=== PATIENT | female | born 2000 | race Caucasian/White ===

== ENCOUNTER 2022-05-19 16:04 | Inpatient (IN) ==
[2022-05-19 17:20] LABS: Basophils # (auto) 0.03 K/uL (0-0.2); Basophils % (auto) 0.5 %; Eosinophils # (auto) 0.13 K/uL (0-0.50); Eosinophils % (auto) 2.1 %; Hematocrit (blood only) 29.1 % (34.1-44.9); Hemoglobin 9.6 g/dl (12.0-16.0); Immature Granulocytes # (auto) 0.01 K/uL (0.00-0.02); Immature Granulocytes % (auto) 0.2 %; Lymphocytes # (auto) 2.17 K/uL (1.2-3.4); Lymphocytes % (auto) 34.9 %; Mean Corpuscular Hemoglobin 30.9 pg (25.0-34.0); Mean Corpuscular Volume 93.6 fL (80.0-100.0); Monocytes # (auto) 0.36 K/uL (0.24-0.82); Monocytes % (auto) 5.8 %; Neutrophils # (auto) 3.52 K/uL (1.4-6.5); Neutrophils % (auto) 56.5 %; Platelet Count 303 K/uL (130-400); RDW Standard Deviation 44.2 fL (36.4-46.3); Red Blood Count 3.11 M/uL (3.93-5.22); White Blood Count 6.22 K/ul (4.8-10.8)
[2022-05-19 17:35] LABS: Pregnancy Test, Serum Negative (Negative)
[2022-05-19 17:55] LABS: Albumin Globulin Ratio 1.2 (0.9-2); Albumin Level 4.1 gm/dl (3.4-5.0); BUN Creatinine Ratio 11.4 (10-20); Bilirubin,Total 0.3 mg/dl (0.2-1.0); Calcium 8.5 mg/dl (8.5-10.1); Creatinine Clr Calc Pharmacy 22.4 ml/min; Est GFR (African American) 16.5 ml/min; Est GFR (Non-African American) 14.2 ml/min; Globulin 3.5 gm/dl (2.5-4.0); Potassium 3.4 mmol/L (3.5-5.1); Total Protein 7.6 gm/dl (6.0-8.3)
[2022-05-19] MEDS ORDERED: SODIUM CHLORIDE 0.9% 1000ML 500 ML IV ONE (18:27)
[2022-05-19] MEDS ORDERED: SODIUM CHLORIDE 0.9% 1000ML 1,000 ML IV STA (18:27)
--- NOTE | 2022-05-19 18:30 | Emergency Department Note ---
Impression & Plan Acute renal failure ED Provider Note INFORMANT: Patient ED PROVIDER(S): Leonel Zapata MD CHIEF COMPLAINT: Abnormal labs PLAN: Disposition: Admitted Condition: Good Outpatient prescription management: none Referral: None MEDICAL DECISION MAKING: patient presented due to abnormal labs and concern about possible Renal failure. He patient had a work-up initiated. Her CBC showed a minimal anemia. Chemistry panel did reveal the presence of renal failure with a creatinine of 4.8. Potassium was unremarkable. Urinalysis did not reveal any gross findings. The patient had a CT scan of the abdomen pelvis performed. No obstructive pathology was noted. Ultrasound imaging ordered. Patient was hydrated. Consultation was made with Dr. Adam Tinoco of the [facility] service. Patient was evaluated in the ER for further management. Triage Nursing notes reviewed and agree them. Vital Signs: reviewed and remarkable for no significant abnormalities Differential diagnosis: Laboratory abnormality, acute renal failure, infection, dehydration, metabolic abnormality, hypo/hyperglycemia, electrolyte disturbance, anemia, hypoxia, cardiac sources, intracerebral event, toxicologic, neurologic, as well as other pathologies. Diagnostics interpreted by me: ECG: none Cardiac Monitoring: none Imaging studies: Scan as noted below HPI: The patient is a 21 year old female who presents to the Emergency Room with complaints of of abnormal labs. This started with a blood draw done 3 days ago and is described as a creatinine of 4.5. The patient also notes the following associated symptoms, some URI symptoms last week but overall patient feels well now. Patient did have COVID over the summer. She has been worked up for anemia and the outpatient labs revealed the abnormal creatinine. The patient has been prescribed no medication for relieving factors. Current pain is rated as 0/10. No prior history of the same. Pt denies LOC, headache, fevers, chills, diaphoresis, visual changes, neck pain, chest pain, breathing difficulties, nausea, vomiting, abdominal pain, back pain, melena, hematochezia, urinary symptoms, numbness, weakness, lymphadenopathy, rash, or other complaints. ROS: See above HPI for pertinent positives & negatives. A total of 10 systems reviewed and were otherwise negative. PAST MEDICAL HISTORY:See Below , anemia, ADHD PAST SURGICAL HISTORY:See Below, FAMILY HISTORY:See Below SOCIAL HISTORY:See Below, [employer] student HOME MEDICATIONS:See Below ALLERGIES:See Below VITALS:See Below PHYSICAL EXAMINATION: GENERAL: Awake, alert, well-appearing, in no distress HENT: Normocephalic, atraumatic. Oropharynx unremarkable. EYES: Normal conjunctiva. Sclera non-icteric. NECK: Inspection normal. Non-tender. Supple. No nuchal rigidity. FROM. No masses. RESPIRATORY: Clear to auscultation. No wheezes. No rales. Normal respiratory effort. CARDIAC: Normal rate. Normal rhythm. No murmurs. No rubs. Extremities warm and well perfused. Pulses equal. No JVD. GI: Soft, non-distended. No tenderness to palpation. No rebound or guarding. No masses. RECTAL: Deferred. MUSCULOSKELETAL: Atraumatic. Chest examination reveals no tenderness. The back is symmetrical on inspection without obvious abnormality. There is no CVA tenderness to palpation. No joint edema. LOWER EXTREMITIES: Calves are equal size bilaterally and non-tender. No edema. No discoloration. NEURO: Normal sensorium. No sensory or motor deficits noted. SKIN: No rash or jaundice noted. Leonel Zapata MD Past Med/Surg History Medical History (Updated 05/19/22 @ 21:12 by Sonia Pitts PA-C) ADD (attention deficit disorder) Anemia Depression Surgical History (Updated 05/19/22 @ 20:14 by Sonia Pitts PA-C) History of myringotomy Family History (Updated 05/19/22 @ 20:14 by Sonia Pitts PA-C) Denies family history of Kidney disease Social History Smoking Status: Never smoker Feels Safe at Home: Yes Allergies Allergies Allergy/AdvReac Type Severity Reaction Status Date / Time No Known Allergies Allergy Unverified 05/19/22 20:54 Home Meds Home Medications Medication Instructions Recorded Confirmed Control Pill 1 tab PO DAILY 05/19/22 05/19/22 dextroamphetamine-amphetamine ER 25 mg PO DAILY 05/19/22 05/19/22 25 mg 24hr capsule,extend release (Adderall XR) escitalopram oxalate 20 mg tablet 20 mg PO DAILY 05/19/22 05/19/22 (Lexapro) ferrous sulfate 325 mg (65 mg 0 mg PO DAILY 05/19/22 05/19/22 iron) tablet (iron) vitamin B complex 1 tab PO DAILY 05/19/22 05/19/22 Results & Data (ED) Vital Signs Vital Signs - 24 hr 05/19/22 16:07 05/19/22 18:21 05/19/22 20:14 Temperature 36.8 C Temperature Source Temporal Artery Scan Pulse Rate 109 H 95 H Pulse Rate [Right Finger] 84 Pulse Rhythm Regular Respiratory Rate 20 18 24 Respiratory Effort / Characteristics Non-Labored Respiratory Depth Normal Blood Pressure 136/88 Blood Pressure [Left Arm] 148/96 H Blood Pressure Mean 104 Blood Pressure Mean [Left Arm] 113 Pulse Oximetry 98 98 100 Oxygen Delivery Method Room Air Room Air Room Air Sepsis Recent Fever Within 48 Hours No Sepsis New/Unexplained Change in Mental Status N/A Sepsis Action Taken by Nursing No Action Required 05/19/22 20:14 05/19/22 22:00 Temperature Temperature Source Pulse Rate Pulse Rate [Right Finger] 95 H 83 Pulse Rhythm Respiratory Rate 24 17 Respiratory Effort / Characteristics Respiratory Depth Blood Pressure Blood Pressure [Left Arm] 160/103 H Blood Pressure Mean Blood Pressure Mean [Left Arm] 122 Pulse Oximetry 100 100 Oxygen Delivery Method Room Air Room Air Sepsis Recent Fever Within 48 Hours Sepsis New/Unexplained Change in Mental Status Sepsis Action Taken by Nursing Laboratory Data Result diagrams: 05/19/22 17:11 05/19/22 17:11 Lab Results 05/19/22 05/19/22 05/19/22 Range/Units 17:11 17:11 17:11 WBC 6.22 (4.8-10.8) K/ul RBC 3.11 L (3.93-5.22) M/uL Hgb 9.6 L (12.0-16.0) g/dl Hct 29.1 L (34.1-44.9) % MCV 93.6 (80.0-100.0) fL MCH 30.9 (25.0-34.0) pg MCHC 33.0 (32.0-36.0) g/dL RDW Std Deviation 44.2 (36.4-46.3) fL RDW Coeff of Maria Teresa 13.0 (11.5-14.5) % Plt Count 303 (130-400) K/uL MPV 9.0 L (9.4-12.3) fL Immature Gran % (Auto) 0.2 % Neut % (Auto) 56.5 % Lymph % (Auto) 34.9 % Grand % (Auto) 5.8 % Eos % (Auto) 2.1 % Baso % (Auto) 0.5 % Neut # (Auto) 3.52 (1.4-6.5) K/uL Lymph # (Auto) 2.17 (1.2-3.4) K/uL Grand # (Auto) 0.36 (0.24-0.82) K/uL Eos # (Auto) 0.13 (0-0.50) K/uL Baso # (Auto) 0.03 (0-0.2) K/uL Immature Gran # (Auto) 0.01 (0.00-0.02) K/uL Sodium 141 (136-145) mmol/L Potassium 3.4 L (3.5-5.1) mmol/L Chloride 107 (98-107) mmol/L Carbon Dioxide 22 (21-32) mmol/L Anion Gap 12 H (3-11) BUN 48 H (6-23) mg/dl Creatinine 4.20 H (0.6-1.2) mg/dl Est Cr Clr Drug Dosing 22.4 ml/min Est GFR ( Amer) 16.5 ml/min Est GFR (Non-Af Amer) 14.2 ml/min BUN/Creatinine Ratio 11.4 (10-20) Glucose 96 (70-99(Fasting)) mg/dl Calcium 8.5 (8.5-10.1) mg/dl Total Bilirubin 0.3 (0.2-1.0) mg/dl AST 15 (13-39) U/L ALT 10 (7-52) U/L Alkaline Phosphatase 119 H (34-104) U/L Total Protein 7.6 (6.0-8.3) gm/dl Albumin 4.1 (3.4-5.0) gm/dl Globulin 3.5 (2.5-4.0) gm/dl Albumin/Globulin Ratio 1.2 (0.9-2) Lipase 29 (11-82) U/L 25-OH Vitamin D Total (30-100) ng/ml HCG, Qual Negative (Negative) PTH Intact (12.0-88.0) pg/ml Urine Color Urine Appearance (Clear) Urine pH (4.5-7.5) Ur Specific Chancellor (1.000-1.030) Urine Protein (Negative) Urine Glucose (UA) (Negative) Urine Ketones (Negative) Urine Blood (Negative) Urine Nitrite (Negative) Urine Bilirubin (Negative) Urine Urobilinogen (Negative) Ur Leukocyte Esterase (Negative) Urine WBC (Auto) (0-5) /hpf Urine RBC (Auto) (0-4) /hpf U Hyaline Cast (Auto) (0-5) /lpf U Epithel Cells (Auto) (0-5) /lpf Urine Bacteria (Auto) (Negative) SARS-CoV-2, RNA, NAAT (NEGATIVE) 05/19/22 05/19/22 05/19/22 Range/Units 17:11 18:19 19:50 WBC (4.8-10.8) K/ul RBC (3.93-5.22) M/uL Hgb (12.0-16.0) g/dl Hct (34.1-44.9) % MCV (80.0-100.0) fL MCH (25.0-34.0) pg MCHC (32.0-36.0) g/dL RDW Std Deviation (36.4-46.3) fL RDW Coeff of Maria Teresa (11.5-14.5) % Plt Count (130-400) K/uL MPV (9.4-12.3) fL Immature Gran % (Auto) % Neut % (Auto) % Lymph % (Auto) % Grand % (Auto) % Eos % (Auto) % Baso % (Auto) % Neut # (Auto) (1.4-6.5) K/uL Lymph # (Auto) (1.2-3.4) K/uL Grand # (Auto) (0.24-0.82) K/uL Eos # (Auto) (0-0.50) K/uL Baso # (Auto) (0-0.2) K/uL Immature Gran # (Auto) (0.00-0.02) K/uL Sodium (136-145) mmol/L Potassium (3.5-5.1) mmol/L Chloride (98-107) mmol/L Carbon Dioxide (21-32) mmol/L Anion Gap (3-11) BUN (6-23) mg/dl Creatinine (0.6-1.2) mg/dl Est Cr Clr Drug Dosing ml/min Est GFR ( Amer) ml/min Est GFR (Non-Af Amer) ml/min BUN/Creatinine Ratio (10-20) Glucose (70-99(Fasting)) mg/dl Calcium (8.5-10.1) mg/dl Total Bilirubin (0.2-1.0) mg/dl AST (13-39) U/L ALT (7-52) U/L Alkaline Phosphatase (34-104) U/L Total Protein (6.0-8.3) gm/dl Albumin (3.4-5.0) gm/dl Globulin (2.5-4.0) gm/dl Albumin/Globulin Ratio (0.9-2) Lipase (11-82) U/L 25-OH Vitamin D Total 35.6 (30-100) ng/ml HCG, Qual (Negative) PTH Intact (12.0-88.0) pg/ml Urine Color Yellow Urine Appearance Clear (Clear) Urine pH 6.5 (4.5-7.5) Ur Specific Chancellor 1.006 (1.000-1.030) Urine Protein Trace H (Negative) Urine Glucose (UA) Negative (Negative) Urine Ketones Negative (Negative) Urine Blood Negative (Negative) Urine Nitrite Negative (Negative) Urine Bilirubin Negative (Negative) Urine Urobilinogen Negative (Negative) Ur Leukocyte Esterase Negative (Negative) Urine WBC (Auto) 1-5 (0-5) /hpf Urine RBC (Auto) 0-4 (0-4) /hpf U Hyaline Cast (Auto) 0 (0-5) /lpf U Epithel Cells (Auto) 5-10 H (0-5) /lpf Urine Bacteria (Auto) Negative (Negative) SARS-CoV-2, RNA, NAAT NEGATIVE (NEGATIVE) 05/19/22 Range/Units 20:25 WBC (4.8-10.8) K/ul RBC (3.93-5.22) M/uL Hgb (12.0-16.0) g/dl Hct (34.1-44.9) % MCV (80.0-100.0) fL MCH (25.0-34.0) pg MCHC (32.0-36.0) g/dL RDW Std Deviation (36.4-46.3) fL RDW Coeff of Maria Teresa (11.5-14.5) % Plt Count (130-400) K/uL MPV (9.4-12.3) fL Immature Gran % (Auto) % Neut % (Auto) % Lymph % (Auto) % Grand % (Auto) % Eos % (Auto) % Baso % (Auto) % Neut # (Auto) (1.4-6.5) K/uL Lymph # (Auto) (1.2-3.4) K/uL Grand # (Auto) (0.24-0.82) K/uL Eos # (Auto) (0-0.50) K/uL Baso # (Auto) (0-0.2) K/uL Immature Gran # (Auto) (0.00-0.02) K/uL Sodium (136-145) mmol/L Potassium (3.5-5.1) mmol/L Chloride (98-107) mmol/L Carbon Dioxide (21-32) mmol/L Anion Gap (3-11) BUN (6-23) mg/dl Creatinine (0.6-1.2) mg/dl Est Cr Clr Drug Dosing ml/min Est GFR ( Amer) ml/min Est GFR (Non-Af Amer) ml/min BUN/Creatinine Ratio (10-20) Glucose (70-99(Fasting)) mg/dl Calcium (8.5-10.1) mg/dl Total Bilirubin (0.2-1.0) mg/dl AST (13-39) U/L ALT (7-52) U/L Alkaline Phosphatase (34-104) U/L Total Protein (6.0-8.3) gm/dl Albumin (3.4-5.0) gm/dl Globulin (2.5-4.0) gm/dl Albumin/Globulin Ratio (0.9-2) Lipase (11-82) U/L 25-OH Vitamin D Total (30-100) ng/ml HCG, Qual (Negative) PTH Intact 753.6 H (12.0-88.0) pg/ml Urine Color Urine Appearance (Clear) Urine pH (4.5-7.5) Ur Specific Chancellor (1.000-1.030) Urine Protein (Negative) Urine Glucose (UA) (Negative) Urine Ketones (Negative) Urine Blood (Negative) Urine Nitrite (Negative) Urine Bilirubin (Negative) Urine Urobilinogen (Negative) Ur Leukocyte Esterase (Negative) Urine WBC (Auto) (0-5) /hpf Urine RBC (Auto) (0-4) /hpf U Hyaline Cast (Auto) (0-5) /lpf U Epithel Cells (Auto) (0-5) /lpf Urine Bacteria (Auto) (Negative) SARS-CoV-2, RNA, NAAT (NEGATIVE) Administered Medications Discontinued Medications Sodium Chloride (Nss 1000ml) 500 mls @ 999 mls/hr IV .Q31M ONE Stop: 05/19/22 18:57 Last Infusion: 05/19/22 19:44 Dose: 0 mls/hr Documented By: Admin: 05/19/22 18:47 Dose: 999 mls/hr Documented By: GABY Sodium Chloride (Nss 1000ml) 1,000 mls @ 125 mls/hr IV .Q8H STA Stop: 05/20/22 02:26 Last Infusion: 05/19/22 21:16 Dose: 0 mls/hr Documented By: Admin: 05/19/22 19:47 Dose: 125 mls/hr Documented By: FIDELIA Lactated Ringer's (Lr) 1,000 mls @ 999 mls/hr IV .Q1H1M ONE Stop: 05/19/22 22:07 Last Admin: 05/19/22 21:35 Dose: 999 mls/hr Documented By: FIDELIA Potassium Chloride (Potassium Chloride Crtab 20 Meq Tabcr) 20 meq PO NOW STA Stop: 05/19/22 21:18 Last Admin: 05/19/22 21:43 Dose: 20 meq Documented By: FIDELIA Imaging Data Radiologist's Impression: Abdomen/Pelvis CT 05/19/22 18:[address] WITHOUT CONTRAST CT DOSE: 475.91 mGy.cm HISTORY: Acute generalized abdominal pain with acute renal failure ARF TECHNIQUE: Multiaxial CT images of the abdomen and pelvis were performed without contrast. A dose lowering technique was utilized adhering to the principles of ALARA. COMPARISON STUDY: None. FINDINGS: Clear lung bases. No pneumatosis or pneumoperitoneum. Decreased attenuation of the cardiac blood pool suggestive of anemia. The unenhanced spleen, pancreas, contracted gallbladder, adrenal glands and liver appear unremarkable. 3.2 cm water attenuating focus of the superior pole right kidney suggestive of a cyst. Probable additional smaller cysts of the interpolar right kidney. 1.3 cm cyst within the superior pole left kidney. No renal or ureteral calculi or hydronephrosis. Mildly atrophic kidneys measuring 8.8 cm on the left and 9.2 cm on the right. Trace nonspecific bilateral perinephric stranding. Unremarkable urinary bladder, uterus and adnexa. Aorta and IVC are unremarkable. There is no lymphadenopathy identified. No bowel obstruction or bowel wall thickening. Mild colonic diverticulosis. Normal appendix. Unremarkable soft tissues. There is diffuse sclerosis of the osseous structures. Minimal lumbar levoscoliosis. IMPRESSION: 1. Mild atrophy of the kidneys without renal or ureteral calculi or hydronephrosis. 2. Diffuse sclerosis of the osseous structures suggestive of renal osteodystrophy. 3. No bowel obstruction or bowel wall thickening. Normal appendix. ACT 112: Negative or not required by law. The above report was generated using voice recognition software. It may contain grammatical, syntax or spelling errors. Electronically signed by: Nickolas Nolan M.D. 05/19/2022 7:05 PM Discharge Plan Visit Data Chief Complaint: Abnormal Labs/Diagnostic Testing Stated Complaint: ABNORMAL LAB RESULTS, POTENTIAL KIDNEY FAILURE ED Provider: Leonel Zapata Discharge Problem: Acute renal failure Forms Stand Alone Forms: My [facility] Prescriptions Prescriptions: No Action ferrous sulfate [iron] 325 mg (65 mg iron) Tablet 0 mg PO DAILY vitamin B complex Tablet 1 tab PO DAILY dextroamphetamine-amphetamine [Adderall XR] 25 mg Capsule,Extended Release 24hr 25 mg PO DAILY escitalopram oxalate [Lexapro] 20 mg Tablet 20 mg PO DAILY Rx Instructions: per mother Control Pill 1 tab PO DAILY Referrals Referrals: FRANCIS KAUFMAN [Other]
[2022-05-19 18:37] LABS: Appearance Urine Clear (Clear); Bacteria Urine Automated Negative (Negative); Bilirubin Urine Negative (Negative); Blood Urine Negative (Negative); Cast Urine Automated 0 /lpf (0-5); Color Urine Yellow; Glucose Urine UA Negative (Negative); Ketones Urine Negative (Negative); Leukocyte Esterase Urine Negative (Negative); Nitrite Urine Negative (Negative); Protein Urine Trace (Negative); RBC Urine Automated 0-4 /hpf (0-4); Specific Gravity Urine 1.006 (1.000-1.030); Urobilinogen Urine Negative (Negative); pH Urine 6.5 (4.5-7.5)
--- NOTE | 2022-05-19 19:07 | CT Scan Report ---
ABDOMEN AND PELVIS CT WITHOUT CONTRAST CT DOSE: 475.91 mGy.cm HISTORY: Acute generalized abdominal pain with acute renal failure ARF TECHNIQUE: Multiaxial CT images of the abdomen and pelvis were performed without contrast. A dose lo wering technique was utilized adhering to the principles of ALARA. COMPARISON STUDY: None. FINDINGS: Clear lung bases. No pneumatosis or pneumoperitoneum. Decreased attenuation of the cardiac blood pool suggestive of anemia. The unenhanced spleen, pancreas, contracted gallbladder, adrenal gla nds and liver appear unremarkable. 3.2 cm water attenuating focus of the superior pole right kidney suggestive of a cyst. Probable addit ional smaller cysts of the interpolar right kidney. 1.3 cm cyst within the superior pole left kidney. No renal or ureteral calculi or hydronephrosis. Mildly atrophic kidneys measuring 8.8 cm on the left and 9.2 cm on the right. Trace nonspecific bilateral perinephric stranding. Unremarkable urinary jaylene dder, uterus and adnexa. Aorta and IVC are unremarkable. There is no lymphadenopathy identified. No bowel obstruction or bowel wall thickening. Mild colonic diverticulosis. Normal appendix. Unremark able soft tissues. There is diffuse sclerosis of the osseous structures. Minimal lumbar levoscoliosis . IMPRESSION: 1. Mild atrophy of the kidneys without renal or ureteral calculi or hydronephrosis. 2. Diffuse sclerosis of the osseous structures suggestive of renal osteodystrophy. 3. No bowel obstruction or bowel wall thickening. Normal appendix. ACT 112: Negative or not required by law. The above report was generated using voice recognition software. It may contain grammatical, syntax o r spelling errors. Electronically signed by: Nickolas Nolan M.D. 05/19/2022 7:05 PM
--- NOTE | 2022-05-19 19:22 | History & Physical Report ---
Date of Service May 19, 2022 Assessment & Plan (1) Acute renal failure: Plan: - Cr 4.20, GFR < 15. ALK PHOS 119. - Urine wnl. - Renal US pending. - CT A/P: Mild atrophy of the kidneys without renal or ureteral calculi or hydronephrosis. Diffuse sclerosis of the osseous structures suggestive of renal osteodystrophy. - Unknown etiology. No personal or family history of kidney disease, no comorbid conditions that may be contributing, no new medications. - 500 cc bolus given in ED, will order additional 1L LR bolus with mIVF: LR 125 cc/hr. - PTH, vitamin D added on to labs. - Repeat BMP this evening and in AM. - Nephrology consulted, appreciate their assistance with this patient and further recommendations. (2) Elevated heart rate with elevated blood pressure without diagnosis of hypertension: Plan: - HTnsive SBP 140-160s, suspect an element of anxiety is contributing. - We will continue IVF and give patient time to rest, if BP remians elevated overnight while asleep, will consider addding on antihypertensive. (3) Anemia: Plan: - Hgb 9.3, likely element of kidney disease. - Continue iron and b-complex. - Iron studies with AM labs. (4) Depression: Plan: - Continue lexapro. (5) ADD (attention deficit disorder): Plan: - Continue Adderall XR as requested by patient. Plan - Admit to med/tele. - SCDsa for VTE ppx. - Full Code. History of Present Illness Chief Complaint: Elevated creatinine on outpatient labs today Primary Care Provider: FRANCIS SHAE Gomez is a 21-year-old female with past medical history significant for ADD and depression who presents today as referral of her PCP due to abnormal labs. Patient had COVID-19 infection this summer and had prolonged fatigue, therefore basic labs were drawn and she was being worked up for anemia. Started on iron supplement and B complex vitamin. Care has been taken over by career services representative, who is a close family friend. She had labs drawn 3 days ago which came back with a creatinine of 4.5. Given the results, she was referred to the ED for further evaluation. On CT, it is noted that there is mild atrophy of the kidneys without any renal/ureteral calculi or hydronephrosis, diffuse sclerosis of the osseous structures suggestive of renal osteodystrophy. Is a 3.2 cm cystic structure on superior pole of the right kidney and a 1.3 cm cyst within the superior pole of the left kidney. Patient has had a URI for the past week, but has been getting better. She is producing urine. Her medications include Adderall and Lexapro, neither of which are new. She is not had any recent fractures or MSK injuries. There is no history of kidney disease in the family. Patient's past medical history does not seem to be contributory. She had ear tubes in infancy, and is on the above prescribed medications. No personal history of kidney disease or bone disease. Allergies Allergy/AdvReac Type Severity Reaction Status Date / Time No Known Allergies Allergy Unverified 05/19/22 20:54 Home Medications Medication Instructions Recorded Confirmed Type Control Pill 1 tab PO DAILY 05/19/22 05/19/22 History dextroamphetamine-amphetamine ER 25 mg PO DAILY 05/19/22 05/19/22 History 25 mg 24hr capsule,extend release (Adderall XR) escitalopram oxalate 20 mg tablet 20 mg PO DAILY 05/19/22 05/19/22 History (Lexapro) ferrous sulfate 325 mg (65 mg 0 mg PO DAILY 05/19/22 05/19/22 History iron) tablet (iron) vitamin B complex 1 tab PO DAILY 05/19/22 05/19/22 History Past Med/Surg History Medical History ADD (attention deficit disorder) Anemia Depression Surgical History History of myringotomy Family History Denies family history of Kidney disease Social History Smoking Status: Never smoker Hx Alcohol Use: Yes Alcohol type: beer Hx Substance Use: No Preferred Language: Pashto Route Service Representative Required: No Beliefs That Will Affect Care: None Current Living Situation: Other Current Living Situation Comment: friend Feels Safe at Home: Yes Assistive Devices: Glasses Review of Systems Review of Systems: Constitutional: No fever/chills, weakness, fatigue, myalgias, anorexia, night sweats Eyes: No diplopia, no worsening or blurred vision ENT: normal hearing, no trouble swallowing Respiratory: No cough, sputum, dyspnea at rest or on exertion Cardiovascular: No chest pain, tightness or palpitations Abdomen: No pain, nausea, vomiting, diarrhea or constipation : Denies dysuria, hematuria, increased urgency/frequency, urinary retention Musculoskeletal: No joint pain, calf pain, swelling Neurologic: No weakness, numbness/tingling, or balance problems Psychiatric: No anxiety or depression Skin: No rash or itch Physical Exam Physical Exam: General: awake, alert, no apparent distress Head: Normocephalic, atraumatic ENT: PERRL, EOMI, no pharyngeal exudate, mucous membranes moist Chest: Clear to auscultation, on room air, no adventitious breath sounds Cardiac: Regular rate and rhythm, no murmur, no JVD, normal peripheral pulses, good capillary refill Abdominal: NABS x 4 quadrants, soft, nontender to palpation, no rebound, guarding or tenderness Extremities: Normal inspection, no peripheral edema or erythema, calfs nontender to palpation Psych: Normal mood and affect Neuro: AAO x 3, strength intact bilaterally and rated 5/5, no motor deficits, speech is clear, no peripheral sensory deficits Skin: no rash or erythema Results & Data Results & Data ([facility]) Vital Signs (Past 12 Hours) Vital Signs Temp Pulse Pulse Resp BP BP Pulse Ox 05/19/22 18:21 84 18 148/96 H 98 05/19/22 16:07 36.8 C 109 H 20 136/88 98 O2 Del Method 05/19/22 18:21 Room Air 05/19/22 16:07 Room Air Laboratory Results Abnormal lab results 05/19/22 05/19/22 05/19/22 Range/Units 17:11 17:11 18:19 RBC 3.11 L (3.93-5.22) M/uL Hgb 9.6 L (12.0-16.0) g/dl Hct 29.1 L (34.1-44.9) % MPV 9.0 L (9.4-12.3) fL Potassium 3.4 L (3.5-5.1) mmol/L Anion Gap 12 H (3-11) BUN 48 H (6-23) mg/dl Creatinine 4.20 H (0.6-1.2) mg/dl Alkaline Phosphatase 119 H (34-104) U/L Urine Protein Trace H (Negative) U Epithel Cells (Auto) 5-10 H (0-5) /lpf Diagnostic Findings Abdomen/Pelvis CT 05/19/22 18:[address] WITHOUT CONTRAST CT DOSE: 475.91 mGy.cm HISTORY: Acute generalized abdominal pain with acute renal failure ARF TECHNIQUE: Multiaxial CT images of the abdomen and pelvis were performed without contrast. A dose lowering technique was utilized adhering to the principles of ALARA. COMPARISON STUDY: None. FINDINGS: Clear lung bases. No pneumatosis or pneumoperitoneum. Decreased attenuation of the cardiac blood pool suggestive of anemia. The unenhanced spleen, pancreas, contracted gallbladder, adrenal glands and liver appear unremarkable. 3.2 cm water attenuating focus of the superior pole right kidney suggestive of a cyst. Probable additional smaller cysts of the interpolar right kidney. 1.3 cm cyst within the superior pole left kidney. No renal or ureteral calculi or hydronephrosis. Mildly atrophic kidneys measuring 8.8 cm on the left and 9.2 cm on the right. Trace nonspecific bilateral perinephric stranding. Unremarkable urinary bladder, uterus and adnexa. Aorta and IVC are unremarkable. There is no lymphadenopathy identified. No bowel obstruction or bowel wall thickening. Mild colonic diverticulosis. Normal appendix. Unremarkable soft tissues. There is diffuse sclerosis of the osseous structures. Minimal lumbar levoscoliosis. IMPRESSION: 1. Mild atrophy of the kidneys without renal or ureteral calculi or hydronephrosis. 2. Diffuse sclerosis of the osseous structures suggestive of renal osteodystrophy. 3. No bowel obstruction or bowel wall thickening. Normal appendix. ACT 112: Negative or not required by law. The above report was generated using voice recognition software. It may contain grammatical, syntax or spelling errors. Electronically signed by: Nickolas Nolan M.D. 05/19/2022 7:05 PM Code Status & VTE Plan Code Status Full Code. Supervising Physician Co-Signing Physician Notes Attending addendum: I have physically seen this patient, have supervised the medical residents activities, and agree with the H&P unless as otherwise noted. Assessment and Plan: Acute renal failure- Creatinine 4.20, GFR less than 15 Renal ultrasound ordered and pending CT suggestive of atrophy and renal osteodystrophy Received NSS 500 cc from the ED Order additional 1 L LR bolus now, followed by LR at 125 mils per hour Repeat BMP and magnesium levels this evening in the a.m. Consult nephrology Anemia- Hemoglobin 9.3 Serial H&H's Check iron studies, B12 folic acid Continue iron and B complex supplementation Hemoccult stools Likely an element of anemia of chronic disease as well Depression/ADD- Continue Lexapro and Adderall XR Remaining orders and notations as noted PG Care Time/CCT Total # of Minutes Spent Total Time Spent with Patient: Total time spent is greater than 50% in coordination of care (as documented) at patient's floor/unit and/or counseling patient: Coding Level of Care Code 34977 Initial Inpt Care Lvl 3 Diagnoses Acute renal failure N17.9 Elevated heart rate with elevated blood pressure without diagnosis of hypertension R00.9; R03.0 Anemia D64.9 Depression F32.A ADD (attention deficit disorder) F98.8
[2022-05-19] MEDS ORDERED: LACTATED RINGER'S 1,000 ML IV ONE (21:07)
[2022-05-19] MEDS ORDERED: POTASSIUM CHLORIDE CRTAB 20 MEQ TABCR PO STA (21:17)
[2022-05-19] MEDS ORDERED: POLYETHYLENE (MIRALAX) 17 GM PACK PO PRN (23:14)
[2022-05-19] MEDS ORDERED: ACETAMINOPHEN 325 MG TAB PO PRN (23:14)
[2022-05-19] MEDS ORDERED: ONDANSETRON INJ 2 MG/ML 2 ML VIAL IV PRN (23:14)
[2022-05-19] MEDS: LACTATED RINGER'S 1,000 ML IV SCH (23:39)
[2022-05-20 00:06] LABS: BUN Creatinine Ratio 10.8 (10-20); Calcium 8.6 mg/dl (8.5-10.1); Creatinine Clr Calc Pharmacy 23.6 ml/min; Est GFR (African American) 17.6 ml/min; Est GFR (Non-African American) 15.1 ml/min; Potassium 3.2 mmol/L (3.5-5.1)
[2022-05-20] MEDS ORDERED: POTASSIUM CHLORIDE CRTAB 20 MEQ TABCR PO STA (00:50)
[2022-05-20 06:52] LABS: Basophils # (auto) 0.02 K/uL (0-0.2); Basophils % (auto) 0.4 %; Eosinophils # (auto) 0.12 K/uL (0-0.50); Eosinophils % (auto) 2.2 %; Hematocrit (blood only) 25.4 % (34.1-44.9); Hemoglobin 8.4 g/dl (12.0-16.0); Immature Granulocytes # (auto) 0.01 K/uL (0.00-0.02); Immature Granulocytes % (auto) 0.2 %; Lymphocytes % (auto) 43.9 %; Mean Corpuscular Hemoglobin 30.7 pg (25.0-34.0); Mean Corpuscular Hgb Conc 33.1 g/dL (32.0-36.0); Mean Corpuscular Volume 92.7 fL (80.0-100.0); Mean Platelet Volume 8.8 fL (9.4-12.3); Monocytes # (auto) 0.35 K/uL (0.24-0.82); Monocytes % (auto) 6.4 %; Neutrophils # (auto) 2.57 K/uL (1.4-6.5); Neutrophils % (auto) 46.9 %; Platelet Count 252 K/uL (130-400); RDW Coefficient of Variation 13.2 % (11.5-14.5); RDW Standard Deviation 44.6 fL (36.4-46.3); Red Blood Count 2.74 M/uL (3.93-5.22); White Blood Count 5.47 K/ul (4.8-10.8)
--- NOTE | 2022-05-20 07:25 | Ultrasound Report ---
ULTRASOUND KIDNEYS AND BLADDER CLINICAL HISTORY: Acute renal insufficiency. COMPARISON STUDY: Abdominal CT performed the same day 05/19/2022. TECHNIQUE: Real-time, grayscale, and color flow sonography of the kidneys and bladder is performed. I mages are reviewed in the transverse and longitudinal planes. FINDINGS: Kidneys: The kidneys demonstrate mild cortical atrophy and increased cortical echotexture. The right kidney measures 10.2 cm in length and the left kidney measures 1.3 cm in length. There is no hydrone phrosis. No shadowing renal calculi are identified. Bilateral renal cysts measure up to 3.1 cm. There is no sonographic evidence of contour deforming renal mass lesion. No perinephric fluid is identifie d. Bladder: The bladder is normal in appearance. Bilateral ureteral jets were seen. IMPRESSION: 1. The kidneys demonstrate mild cortical atrophy and increased cortical echotexture indicating medica l renal disease. 2. The bladder is normal as visualized. ACT 112: Negative or not required by law. Electronically signed by: Monroe Willis M.D. 05/20/2022 7:24 AM
[2022-05-20 07:27] LABS: Iron 72 mcg/dl (35-150); Total Iron Binding Cap Calc 294 mcg/dl (250-450); Transferrin (FE) Percent Satur 24 % (15-50); Unsaturated Iron Binding Cap 222 mcg/dl (155-355)
[2022-05-20 07:29] LABS: BUN Creatinine Ratio 10.2 (10-20); Calcium 8.5 mg/dl (8.5-10.1); Creatinine Clr Calc Pharmacy 24.7 ml/min; Est GFR (African American) 18.4 ml/min; Est GFR (Non-African American) 15.9 ml/min; Potassium 3.7 mmol/L (3.5-5.1)
[2022-05-20] MEDS: LACTATED RINGER'S 1,000 ML IV SCH ×2 (07:40→16:17)
[2022-05-20 07:41] LABS: Ferritin 23.3 ng/ml (8-388)
[2022-05-20] MEDS: ORAL CONTRACEPTIVE: ORDER AWAITING ACTION SCH ×2 (07:41→16:18)
[2022-05-20 07:47] LABS: Folate (Folic Acid) > 22.30 ng/ml (>5.38)
[2022-05-20 07:48] LABS: Vitamin B12 203 pg/ml (180-914)
--- NOTE | 2022-05-20 08:50 | Nephrology Consultation ---
Date of Consultation May 20, 2022 Assessment & Plan (1) Elevated serum creatinine: I have met with Abril and her mother Candy this morning. Patient appears to have advanced CKD. Small renal size w/ cortical thinning and increased echogenicity on imaging, acellular urine sediment, anemia, HTN and marked elevation in PTH all point toward a chronic process. She has had minimal improvement following IV hydration. I have advised 24 hour urine for Clcr, total protein, ESR, serologic studies to assess for vasculitis, SIEP, and renal biopsy. 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 Abril's mother works as an team leader/research psychologist in [place]. She requests transfer to [facility] for renal biopsy and ongoing medical care. I feel that this is reasonable since they can have biopsy completed by [facility], discuss ANIMAL SHEL[employer] WORKER including transplantation w/ [facility] and Abril will be close to her parents. Plan of care has been reviewed w/ [facility] Hospitalist [facility], they will arrange transfer. Order for medical records and prior lab results from [facility] has been placed in EMR. Will continue gentle hydration, monitor I&O's and order initial serologic studies as outlined above. History of Present Illness Reason for Consultation: Elevated creatinine Attending Physician: Momo Farrell MD History of Present Illness Miss Gomez is a 21 year old white female who is seen at the request of the [facility] Hospitalist [facility] for evaluation of elevated creatinine. Medical record in the EMR were reviewed and are summarized as follows: Miss Gomez is originally from [place], [place]. She has maintained medical follow up w/ her Iron Miner but has had no chronic medical illnesses and has not required regular laboratory testing. Miss Gomez reports that in March she tested + for COVID. She had a mild URTI that quickly resolved. In late April she was visiting family in [place] and had sought medical attention due to fatigue. A fingerstick H&H revealed anemia and she was referred to Hematology for evaluation. A full blood panel including PRP and iron studies was ordered. 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 She returned to [place], [place] to attend classes and had her blood drawn at the local [facility]. Cr returned elevated at 4.2 and EMD evaluation was advised. Since admission to [facility] Cr has improved to 3.8 following IV hydration. Urine sediment is acellular. Only trace protein noted on urine dipstick (dilute sample). UPCR, 24 hour urine Clcr has not yet been completed. Renal US has revealed R kidney 10.2 cm, L kidney 9.3 cm. No stone, mass or hydronephrosis. Bilateral simple cysts measuring up to 3.1 cm reported. Bladder appeared normal. The kidneys do demonstrate cortical atrophy and increased echogenicity. Hgb 9.6, iron sat 24% with ferritin 23.3. Normal B12, folate. PTH 754. Miss Gomez denies the regular use on NSAIDS, herbal supplements or other potential nephrotoxic agents. She denies fever, flank pain, gross hematuria, foamy urine, nausea, vomiting or diarrhea. She denies sinus congestion, BELL, seizures, angina, pleurisy, arthralgias, LE swelling or skin rash. Allergies Allergy/AdvReac Type Severity Reaction Status Date / Time No Known Allergies Allergy Unverified 05/19/22 20:54 Home Medications Medication Instructions Recorded Confirmed Type Control Pill 1 tab PO DAILY 05/19/22 05/19/22 History dextroamphetamine-amphetamine ER 25 mg PO DAILY 05/19/22 05/19/22 History 25 mg 24hr capsule,extend release (Adderall XR) escitalopram oxalate 20 mg tablet 20 mg PO DAILY 05/19/22 05/19/22 History (Lexapro) ferrous sulfate 325 mg (65 mg 0 mg PO DAILY 05/19/22 05/19/22 History iron) tablet (iron) vitamin B complex 1 tab PO DAILY 05/19/22 05/19/22 History Patient History Medical History ADD (attention deficit disorder) Anemia Depression Surgical History History of myringotomy Family History Denies family history of Kidney disease Social History Smoking Status: Never smoker Hx Alcohol Use: Yes Alcohol type: beer Hx Substance Use: No Preferred Language: Northern Irish 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: No Beliefs That Will Affect Care: None Current Living Situation: Other Current Living Situation Comment: friend Other Information That Helps Us Care for You: No Feels Safe at Home: Yes Assistive Devices: Glasses Review of Systems Constitutional: no fever and no weight loss Eyes: no worsening vision Ear, Nose, Mouth, Throat: no ear pain, no hearing loss, no sinus pain/pressure and no sore throat Respiratory: no cough and no dyspnea Cardiovascular: no chest pain Gastrointestinal: no abdominal pain, no nausea, no vomiting, no diarrhea/loose stools and no blood in stools Genitourinary: no dysuria, no urinary frequency and no hematuria (no foamy urine) Musculoskeletal: no back pain and no joint pain Integumentary: no problem reported (no rash) Physical Exam Constitutional: not in distress Eyes: PERRL, conjunctivae normal, anicteric sclerae ENMT: external ear and nose normal, oropharynx normal (no sinus tenderness. no oral ulceration) Neck: trachea midline, no thyromegaly Respiratory: normal respiratory effort, lungs clear to auscultation Cardiovascular: RRR, no murmur, no edema Gastrointestinal (Abdomen): normal bowel sounds, soft, nontender, no hepatosplenomegaly Musculoskeletal: Extremities: no joint enlargement Skin: no rashes, warm and dry Neurologic: Speech / Cognition: normal cognition Results & Data ([facility]) Vital Signs (Past 12 Hours) Vital Signs Temp Pulse Pulse Resp BP Pulse Ox Pulse Ox 05/20/22 07:54 36.7 C 89 14 152/86 H 98 05/20/22 03:06 37.0 C 97 H 20 130/70 97 05/20/22 00:00 97 H 05/19/22 23:14 36.7 C 91 H 18 145/87 H 100 05/19/22 23:14 100 05/19/22 22:00 83 17 100 O2 Del Method O2 Del Method 05/20/22 07:54 Room Air 05/20/22 03:06 Room Air 05/20/22 00:00 05/19/22 23:14 Room Air 05/19/22 23:14 Room Air 05/19/22 22:00 Room Air Laboratory Results Laboratory Tests 05/19/22 05/19/22 05/19/22 17:11 17:11 18:19 WBC Hgb Hct Plt Count Sodium Potassium Chloride Carbon Dioxide BUN Creatinine 4.20 H Glucose Calcium Transferrin % Sat Ferritin Vitamin B12 Folate HCG, Qual Negative PTH Intact Urine Color Yellow Urine Appearance Clear Ur Specific [place] 1.006 Urine Protein Trace H Urine Glucose (UA) Negative Urine Blood Negative Urine WBC (Auto) 1-5 Urine RBC (Auto) 0-4 Urine Bacteria (Auto) Negative SARS-CoV-2, RNA, NAAT 05/19/22 05/19/22 05/19/22 19:50 20:25 23:37 WBC Hgb Hct Plt Count Sodium Potassium Chloride Carbon Dioxide BUN Creatinine 3.98 H Glucose Calcium Transferrin % Sat Ferritin Vitamin B12 Folate HCG, Qual PTH Intact 753.6 H Urine Color Urine Appearance Ur Specific [place] Urine Protein Urine Glucose (UA) Urine Blood Urine WBC (Auto) Urine RBC (Auto) Urine Bacteria (Auto) SARS-CoV-2, RNA, NAAT NEGATIVE 05/20/22 05/20/22 05/20/22 06:32 06:32 06:32 WBC 5.47 Hgb 8.4 L Hct 25.4 L Plt Count 252 Sodium 142 Potassium 3.7 Chloride 113 H Carbon Dioxide 21 BUN 39 H Creatinine 3.82 H Glucose 104 H Calcium 8.5 Transferrin % Sat Ferritin 23.3 Vitamin B12 203 Folate > 22.30 HCG, Qual PTH Intact Urine Color Urine Appearance Ur Specific [place] Urine Protein Urine Glucose (UA) Urine Blood Urine WBC (Auto) Urine RBC (Auto) Urine Bacteria (Auto) SARS-CoV-2, RNA, NAAT 05/20/22 06:32 WBC Hgb Hct Plt Count Sodium Potassium Chloride Carbon Dioxide BUN Creatinine Glucose Calcium Transferrin % Sat 24 Ferritin Vitamin B12 Folate HCG, Qual PTH Intact Urine Color Urine Appearance Ur Specific [place] Urine Protein Urine Glucose (UA) Urine Blood Urine WBC (Auto) Urine RBC (Auto) Urine Bacteria (Auto) SARS-CoV-2, RNA, NAAT Laboratory Tests 05/20/22 05/20/22 06:32 06:32 Transferrin % Sat 24 Ferritin 23.3 Diagnostic Findings 05/19/22 Renal US: Kidneys: The kidneys demonstrate mild cortical atrophy and increased cortical echotexture. The right kidney measures 10.2 cm in length and the left kidney measures 9.3 cm in length. There is no hydronephrosis. No shadowing renal calculi are identified. Bilateral renal cysts measure up to 3.1 cm. There is no sonographic evidence of contour deforming renal mass lesion. No perinephric fluid is identified. Bladder: The bladder is normal in appearance. Bilateral ureteral jets were seen. 05/19/[address]: 1. Mild atrophy of the kidneys without renal or ureteral calculi or hydro nephrosis. Kidneys measuring 8.8 cm on the left and 9.2 cm on the right. 2. Diffuse sclerosis of the osseous structures suggestive of renal osteodystrophy. 3. No bowel obstruction or bowel wall thickening. Normal appendix. PG Care Time/CCT Total # of Minutes Spent Total Time Spent with Patient: Total time spent is greater than 50% in coordination of care (as documented) at patient's floor/unit and/or counseling patient: Coding Level of Care Code 19442 Inpt Consult Level 5 Diagnoses Elevated serum creatinine R79.89
[2022-05-20] MEDS ORDERED: FERROUS SULFATE 325 MG TAB PO SCH (09:00)
[2022-05-20] MEDS ORDERED: ESCITALOPRAM OXALATE 20 MG TAB PO SCH (09:00)
[2022-05-20] MEDS ORDERED: VITAMIN B COMPLEX TAB PO SCH (09:00)
--- NOTE | 2022-05-20 14:35 | Discharge Summary ---
Date of Service May 20, 2022 Admission HPI Per Admitting Provider Abril Gomez is a 21-year-old female with past medical history significant for ADD and depression who presents today as referral of her PCP due to abnormal labs. Patient had COVID-19 infection this summer and had prolonged fatigue, therefore basic labs were drawn and she was being worked up for anemia. Started on iron supplement and B complex vitamin. Care has been taken over by auto body technician, who is a close family friend. She had labs drawn 3 days ago which came back with a creatinine of 4.5. Given the results, she was referred to the ED for further evaluation. On CT, it is noted that there is mild atrophy of the kidneys without any renal/ureteral calculi or hydronephrosis, diffuse sclerosis of the osseous structures suggestive of renal osteodystrophy. Is a 3.2 cm cystic structure on superior pole of the right kidney and a 1.3 cm cyst within the superior pole of the left kidney. Patient has had a URI for the past week, but has been getting better. She is producing urine. Her medications include Adderall and Lexapro, neither of which are new. She is not had any recent fractures or MSK injuries. There is no history of kidney disease in the family. Patient's past medical history does not seem to be contributory. She had ear tubes in infancy, and is on the above prescribed medications. No personal history of kidney disease or bone disease. Principal Diagnosis 1. Newly diagnosed renal failure 2. Elevated PTH (likely d/t #1) 3. Anemia - likely of chronic disease Discharge Exam GENERAL: 21 yo Well-developed, well-nourished WF. NAD. LUNGS: Clear to auscultation bilaterally. No W/R/R. CARDIOVASCULAR: Regular rate and rhythm. ABDOMEN: Soft, non-tender and non-distended. BS normoactive x 4 quad. EXTREMITIES: No edema. Non-tender. Peripheral pulses +2/4. NEUROLOGIC: A&O x3. Nonfocal PSYCHIATRIC: Cooperative. Appropriate mood and affect. SKIN: Warm, dry, intact. No rashes or lesions. Discharge Data Allergies Allergy/AdvReac Type Severity Reaction Status Date / Time No Known Allergies Allergy Unverified 05/19/22 20:54 Consultations 05/19/22 19:57 ED Decision to Admit Stat 05/19/22 23:14 Consult Nephrology Routine 05/20/22 14:34 Burn CD for patient Stat Ordered Studies Abdomen/Pelvis CT 05/19/22 18:[address] WITHOUT CONTRAST CT DOSE: 475.91 mGy.cm HISTORY: Acute generalized abdominal pain with acute renal failure ARF TECHNIQUE: Multiaxial CT images of the abdomen and pelvis were performed without contrast. A dose lowering technique was utilized adhering to the principles of ALARA. COMPARISON STUDY: None. FINDINGS: Clear lung bases. No pneumatosis or pneumoperitoneum. Decreased attenuation of the cardiac blood pool suggestive of anemia. The unenhanced spleen, pancreas, contracted gallbladder, adrenal glands and liver appear unremarkable. 3.2 cm water attenuating focus of the superior pole right kidney suggestive of a cyst. Probable additional smaller cysts of the interpolar right kidney. 1.3 cm cyst within the superior pole left kidney. No renal or ureteral calculi or hydronephrosis. Mildly atrophic kidneys measuring 8.8 cm on the left and 9.2 cm on the right. Trace nonspecific bilateral perinephric stranding. Unremarkable urinary bladder, uterus and adnexa. Aorta and IVC are unremarkable. There is no lymphadenopathy identified. No bowel obstruction or bowel wall thickening. Mild colonic diverticulosis. Normal appendix. Unremarkable soft tissues. There is diffuse sclerosis of the osseous structures. Minimal lumbar levoscoliosis. IMPRESSION: 1. Mild atrophy of the kidneys without renal or ureteral calculi or hydronephrosis. 2. Diffuse sclerosis of the osseous structures suggestive of renal osteodystrophy. 3. No bowel obstruction or bowel wall thickening. Normal appendix. ACT 112: Negative or not required by law. The above report was generated using voice recognition software. It may contain grammatical, syntax or spelling errors. Electronically signed by: Nickolas Nolan M.D. 05/19/2022 7:05 PM Renal Ultrasound 05/19/22 18:26 ULTRASOUND KIDNEYS AND BLADDER CLINICAL HISTORY: Acute renal insufficiency. COMPARISON STUDY: Abdominal CT performed the same day 05/19/2022. TECHNIQUE: Real-time, grayscale, and color flow sonography of the kidneys and bladder is performed. Images are reviewed in the transverse and longitudinal planes. FINDINGS: Kidneys: The kidneys demonstrate mild cortical atrophy and increased cortical echotexture. The right kidney measures 10.2 cm in length and the left kidney measures 1.3 cm in length. There is no hydronephrosis. No shadowing renal calculi are identified. Bilateral renal cysts measure up to 3.1 cm. There is no sonographic evidence of contour deforming renal mass lesion. No perinephric fluid is identified. Bladder: The bladder is normal in appearance. Bilateral ureteral jets were seen. IMPRESSION: 1. The kidneys demonstrate mild cortical atrophy and increased cortical echotexture indicating medical renal disease. 2. The bladder is normal as visualized. ACT 112: Negative or not required by law. Electronically signed by: Monroe Willis M.D. 05/20/2022 7:24 AM Hospital Course (1) Acute renal failure: - Cr 4.20, GFR < 15. ALK PHOS 119. - Urine wnl. - Renal US pending. - CT A/P: Mild atrophy of the kidneys without renal or ureteral calculi or hydronephrosis. Diffuse sclerosis of the osseous structures suggestive of renal osteodystrophy. - Unknown etiology. No personal or family history of kidney disease, no comorbid conditions that may be contributing, no new medications. - 500 cc bolus given in ED, will order additional 1L LR bolus with mIVF: LR 125 cc/hr. - PTH, vitamin D added on to labs. - Repeat BMP this evening and in AM. Creat -->3.98 -->3.82 - Nephrology consulted, appreciate their assistance with this patient and further recommendations. * W/U initiated including serologies to assess for vasculitis, 24-hr urine collection to check protein and clcr, SIEP, renal biopsy will need to be pursued also * Concern that this is likely more chronic and not acute although not sure over what period of time that this has been developing * Nephrology advised transfer for ongoing nephrology work up and biopsy which we cannot perform here d/t lack of IR * iPTH also elevated c/w CKD at 753.6 (2) Elevated heart rate with elevated blood pressure without diagnosis of hypertension: - Hypertensive SBP 140-160s, suspect an element of anxiety is contributing. - We will continue IVF and give patient time to rest, if BP remains elevated overnight while asleep, will consider adding on antihypertensive. (3) Anemia: - Hgb 9.3, likely element of kidney disease. - Continue iron and b-complex. - Iron studies: serum 72, TIBC 294, Usat IBC 222, Transferrin % Sat 24, Ferritin 23.3 - B12 low at 203- replacement indicated - (4) Depression: - Continue lexapro. (5) ADD (attention deficit disorder): - Continue Adderall XR as requested by patient. Plan Discussed with [facility] transfer department the request and frankly the need for transfer given she will need to have a biopsy done and we do not have IR services here. Case discussed and it was determined pt's needs could be met at [facility] which is where pt resides with her family. They have IR services and nephrology so will be able to provide needed services. She can continue her work up at that facility. Pt is otherwise medically stable and medical transportation via EMS will be arranged by nursing staff. She can travel via ground BLS. Paperwork completed. Plan has been d/w Dr. Farrell who has also seen and evaluated this patient and agrees with aforementioned. Total Time Total Time Spent Total Time Spent (In Minutes): >30 minutes Discharge Plan Discharge Items Patient Disposition: Transfer Acute Care Hospital Reason For Visit: ELEVATED CREATININE Discharge Diagnosis: newly diagnosed renal failure Activity: Resume your previous activity Non-emergency contact: Primary Care Provider Call non-emergency contact if: you have any medication questions Follow-up/Referrals: Sadie Mosqueda MD [Primary Care Provider] - Diet: Regular Addtl Attending Provider Instructions: You were hospitalized due to newly found kidney failure. You have requested to be transferred to a facility closer to your home associated with [facility] in order to have further work up including but not limited to 24-hour urine collection, kidney biopsy, studies to assist for inflammation of the blood vessels in your kidneys, and possibly even genetic testing. You have been accepted by [facility] to a [facility] under Dr. Jordyn Watson. Please proceed to the hospital and go directly to the registration desk, inform them that you have been accepted under this physician and you should be given your bed assignment. Pending Studies at Discharge: Yes Stand-Alone Forms: My [employer], Smoking Cessation Skilled Items Patient informed of condition?: Yes DNR: No Discharge Level of Care: Other Communicable Disease: No Discharge Prognosis: Stable Lines: None Urinary Catheter: No Medications and DC Order Prescriptions: Continued ferrous sulfate [iron] 325 mg (65 mg iron) Tablet 0 mg PO DAILY vitamin B complex Tablet 1 tab PO DAILY dextroamphetamine-amphetamine [Adderall XR] 25 mg Capsule,Extended Release 24hr 25 mg PO DAILY escitalopram oxalate [Lexapro] 20 mg Tablet 20 mg PO DAILY Rx Instructions: per mother Control Pill 1 tab PO DAILY Discharge Orders: Discharge Order (Routine); Ordered 05/20/22 Ordered By: Alexus Walker Admission Data Admit Date/Time: 05/19/22 20:28 Attending Provider: Momo Farrell Admit Provider: Adam Tinoco Primary Care Provider: Sadie Mosqueda Other Providers: Adam Tinoco ; Rosendo Perdomo Coding Level of Care Code D/C DAY MANAGEMENT >30 MINS Diagnoses Acute renal failure N17.9 Elevated heart rate with elevated blood pressure without diagnosis of hypertension R00.9; R03.0 Anemia D64.9 Depression F32.A ADD (attention deficit disorder) F98.8
[2022-05-27 02:57] LABS: ANCA Screen Negative (Negative); Anti Nuclear Antibody Screen NEGATIVE (NEGATIVE); HBSAG NON-REACTIVE (NON-REACTIVE); Hepatitis B Surface Ab, Quant 7 mIU/mL (> OR = 10); Hepatitis C Vira RNA (Log) PCR <1.18 NOT DETECTED Log IU/mL (NOT DETECTED); Hepatitis C Viral RNA by PCR <15 NOT DETECTED IU/mL (NOT DETECTED); Myeloperoxidase Ab <1.0 AI (<1.0); Proteinase-3 AB <1.0 AI (<1.0)
== END 2022-05-20 17:37 | disposition short-term general hospital (02) | DRG 684 ==
LOC: ED 16:04 → 2S 20:28 → OBSVTOIN 20:28 → SUATTDRO 20:28 → INTOOBSV 20:28 → 2S 22:42 → EDSTATUS 05-27 14:45
DX: N28.1 Cyst of kidney, acquired; F90.9 Attention-deficit hyperactivity disorder, unspecified type; R03.0 Elevated blood-pressure reading, without diagnosis of hypertension; Z79.3 Long term (current) use of hormonal contraceptives; D64.9 Anemia, unspecified; N17.9 Acute kidney failure, unspecified; Z79.899 Other long term (current) drug therapy; F32.A Depression, unspecified